=== PATIENT | male | born 1990 | race Hispanic/Latino ===

== ENCOUNTER 2017-11-23 07:12 | Emergency (ER) | payer OTHER ==
[2017-11-23] MEDS ORDERED: NA CHLORIDE 0.9% 1,000 ML ONE ×2 (07:35→09:04)
[2017-11-23 07:57] LABS: Absolute Lymphocytes (CBC) 1.9 K/uL (0.7-4.9); Absolute Monocytes 0.7 K/uL (0.1-1.3); Absolute Neutrophil 6.6 K/uL (1.8-8.0); Basophils % 0.6 % (0-1.3); Eosinophils % 1.2 % (0-4.4); Hematocrit 42.9 % (39.6-49.0); Lymphocytes % 20.7 % (15.3-44.8); MCH 29.4 pg (27.0-35.0); MCV 85.3 fL (80-100); MPV 8.2 fL (7.6-11.3); Monocytes % 7.5 % (3.3-12.3); RBC Red Blood Cell Count 5.02 M/uL (4.33-5.43)
[2017-11-23 08:05] LABS: ALT/SGPT 26 U/L (12-78); AST/SGOT 20 U/L (15-37); Alkaline Phosphatase 100 U/L (45-117); BUN Blood Urea Nitrogen 17 mg/dL (7-18); Bicarbonate 26 mmol/L (21-32); Bilirubin Direct < 0.1 mg/dL (0-0.2); Bilirubin Total 0.3 mg/dL (0.2-1.0); Glucose Level 111 mg/dL (74-106); Lipase 80 U/L (73-393); Potassium 4.2 mmol/L (3.5-5.1); Protein, Total 8.3 g/dL (6.4-8.2); Sodium Level 140 mmol/L (136-145)
[2017-11-23 08:35] LABS: Urine Blood NEGATIVE (NEG); Urine Glucose NEGATIVE (NEG); Urine Protein 1+ (NEG); Urine Specific Gravity 1.025 (1.005-1.030); Urine pH 6.5 (5.0-7.0)
[2017-11-23 08:36] LABS: Urine Bacteria <20 /HPF (NONE SEEN); Urine Culture Reflex Order NOT NEEDED; Urine Mucus 2+ /HPF (NONE SEEN); Urine RBC <5 /HPF (NONE SEEN)
--- NOTE | 2017-11-23 09:55 | RAD REPORT ---
EXAM DESCRIPTION: CT - Abdomen Pelvis W Contrast - 11/23/2017 9:42 am CLINICAL HISTORY: Abdominal pain. Nausea since 5 a.m. COMPARISON: None. TECHNIQUE: Computed axial tomography of the abdomen and pelvis was obtained. 100 cc Isovue-300 is ad ministered intravenously. Oral contrast was given. All CT scans are performed using dose optimization technique as appropriate and may include automated exposure control or mA/KV adjustment according to patient size. FINDINGS: The liver, spleen, pancreas, adrenals and kidneys appear unremarkable. The appendix is normal caliber. There is no evidence of diverticulitis The wall of the descending colon and proximal sigmoid colon is mildly thickened. IMPRESSION: Mild left colitis
--- NOTE | 2017-11-23 10:06 | ER ---
Nurse's Notes [facility] Name: Raffi Natarajan Age: 27 yrs Sex: Male : 1990 Arrival Date: 11/23/2017 Time: 07:16 Bed 5 Private MD: None, None Diagnosis: Left sided colitis;Abdominal and pelvic pain Presentation: 11/23 07:23 Presenting complaint: Patient states: Abdominal cramps and nausea since 0500 today, has hb been working out in the heat and sun. Denies fever/vomiting. Transition of care: patient was not received from another setting of care. Onset of symptoms was November 23, 2017. Risk Assessment: Do you want to hurt yourself or someone else? Patient reports no desire to harm self or others. Initial Sepsis Screen: Does the patient meet any 2 criteria? No. Patient's initial sepsis screen is negative. Does the patient have a suspected source of infection? No. Patient's initial sepsis screen is negative. Care prior to arrival: None. 07:23 Method Of Arrival: Ambulatory hb 07:23 Acuity: SKYLAR 3 hb Historical: - Allergies: 07:26 No Known Allergies; hb - Home Meds: 07:26 None [Active]; hb - PMHx: 07:26 None; hb - PSHx: 07:26 Appendectomy; hb - Immunization history:: Adult Immunizations up to date. - Social history:: Smoking status: Patient uses tobacco products. - Ebola Screening: : No symptoms or risks identified at this time. Screenin:27 Abuse screen: Denies threats or abuse. Denies injuries from another. Nutritional hb screening: No deficits noted. Tuberculosis screening: No symptoms or risk factors identified. Fall Risk None identified. Assessment: 07:46 General: Appears in no apparent distress. Behavior is calm, cooperative. Pain: Pain hb currently is 7 out of 10 on a pain scale. Neuro: Level of Consciousness is awake, alert, obeys commands, Oriented to person, place, time, situation. Cardiovascular: Capillary refill < 3 seconds Patient's skin is warm and dry. Respiratory: Airway is patent Trachea midline Respiratory effort is even, unlabored, Respiratory pattern is regular, symmetrical, Breath sounds are clear bilaterally. GI: Abdomen is non-distended, Bowel sounds present X 4 quads. Reports nausea. : No signs and/or symptoms were reported regarding the genitourinary system. EENT: No signs and/or symptoms were reported regarding the EENT system. Derm: Skin is intact, is healthy with good turgor, Skin is pink, warm \T\ dry. Musculoskeletal: No signs and/or symptoms reported regarding the musculoskeletal system. 08:20 Reassessment: Pt finished drinking oral contrast, CT notified. hb 08:30 Reassessment: Patient appears in no apparent distress at this time. Patient and/or hb family updated on plan of care and expected duration. Pain level reassessed. Patient is alert, oriented x 3, equal unlabored respirations, skin warm/dry/pink. 09:30 Reassessment: Patient appears in no apparent distress at this time. Patient and/or hb family updated on plan of care and expected duration. Pain level reassessed. Patient is alert, oriented x 3, equal unlabored respirations, skin warm/dry/pink. 10:30 Reassessment: Patient appears in no apparent distress at this time. No changes from previously documented assessment. Patient and/or family updated on plan of care and expected duration. Pain level reassessed. Patient is alert, oriented x 3, equal unlabored respirations, skin warm/dry/pink. Vital Signs: 07:22 BP 122 / 89; Pulse 91; Resp 16 S; Temp 98.3; Pulse Ox 100% ; Pain 7/10; hb 08:30 BP 126 / 76; Pulse 88; Resp 15; Pulse Ox 100% on R/A; hb ED Course: 07:16 Patient arrived in ED. mr 07:17 None, None is Private Physician. mr 07:22 Anjelica Stein, RN is Primary Nurse. hb 07:25 Triage completed. hb 07:26 Arm band placed on right wrist. hb 07:27 Patient has correct armband on for positive identification. Bed in low position. Call hb light in reach. Side rails up X 1. 07:28 Israel Guzman MD is Attending Physician. kdr 07:46 Inserted saline lock: 20 gauge in right antecubital area, using aseptic technique. hb Blood collected. 09:40 CT completed. Patient tolerated procedure well. Patient moved to CT via wheelchair. sj Patient moved back from CT. 09:42 CT Abd/Pelvis - W/Contrast In Process Unspecified. EDMS 10:05 Breann Rizo MD is Referral Physician. kdr 10:51 No provider procedures requiring assistance completed. IV discontinued, intact, hb bleeding controlled, No redness/swelling at site. Pressure dressing applied. Administered Medications: 07:47 Drug: NS 0.9% 1000 ml Route: IV; Rate: 1 bolus; Site: right antecubital; hb 09:05 Follow up: Response: No adverse reaction; IV Status: Completed infusion hb 09:05 Drug: NS 0.9% 1000 ml Route: IV; Rate: 125 ml/hr; Site: right antecubital; hb 10:50 Follow up: Response: No adverse reaction; IV Status: Completed infusion hb 10:49 Drug: Flagyl 500 mg Route: PO; hb 10:49 Follow up: Response: Medication administered at discharge. hb 10:49 Drug: Cipro 500 mg Route: PO; hb 10:50 Follow up: Response: Medication administered at discharge. hb 10:49 Drug: Pepcid 20 mg Route: PO; hb 10:50 Follow up: Response: Medication administered at discharge. hb Outcome: 10:05 Discharge ordered by . kdr 10:51 Discharged to home ambulatory. hb 10:51 Condition: stable 10:51 Discharge instructions given to patient, Instructed on discharge instructions, follow up and referral plans. medication usage, Demonstrated understanding of instructions, follow-up care, medications, Prescriptions given X x 5 10:52 Patient left the ED. hb Signatures: Dispatcher [employer] EDMS Israel Guzman MD MD kdr Rivera, Maria mr Jones, Susan sj Baxter, Heather, RN RN hb
--- NOTE | 2017-11-23 10:06 | EDPHYS ---
Physician Documentation [facility] Name: Raffi Natarajan Age: 27 yrs Sex: Male : 1990 Arrival Date: 11/23/2017 Time: 07:16 Bed 5 Private MD: None, None ED Physician Israel Guzman HPI: 11/23 07:59 This 27 yrs old Male presents to ER via Ambulatory with complaints of kdr Dehydration. 07:59 The patient woke up this morning and had nausea and abdominal cramps. He had worked out kdr in the heat yesterday and feels he may be dehydrataed. Onset: The symptoms/episode began/occurred suddenly, just prior to arrival, this morning. Severity of symptoms: At their worst the symptoms were mild just prior to arrival, in the emergency department the symptoms are unchanged. The patient has not experienced similar symptoms in the past. The patient has not recently seen a physician. Historical: - Allergies: 07:26 No Known Allergies; hb - Home Meds: 07:26 None [Active]; hb - PMHx: 07:26 None; hb - PSHx: 07:26 Appendectomy; hb - Immunization history:: Adult Immunizations up to date. - Social history:: Smoking status: Patient uses tobacco products. - Ebola Screening: : No symptoms or risks identified at this time. ROS: 07:59 Constitutional: Negative for fever, chills, and weight loss, Eyes: Negative for injury, kdr pain, redness, and discharge, ENT: Negative for injury, pain, and discharge, Neck: Negative for injury, pain, and swelling, Cardiovascular: Negative for chest pain, palpitations, and edema, Respiratory: Negative for shortness of breath, cough, wheezing, and pleuritic chest pain, Back: Negative for injury and pain, : Negative for injury, bleeding, discharge, and swelling, MS/Extremity: Negative for injury and deformity, Skin: Negative for injury, rash, and discoloration, Neuro: Negative for headache, weakness, numbness, tingling, and seizure activity. Psych: Negative for depression, anxiety, suicide ideation, homicidal ideation, and hallucinations, Allergy/Immunology: Negative for hives, rash, and allergies, Endocrine: Negative for neck swelling, polydipsia, polyuria, polyphagia, and marked weight changes, Hematologic/Lymphatic: Negative for swollen nodes, abnormal bleeding, and unusual bruising. 07:59 Abdomen/GI: Positive for abdominal pain, nausea, abdominal cramps, Negative for vomiting, diarrhea, constipation, abdominal distension, anorexia, dysphagia, hematemesis, black/tarry stool, rectal pain, rectal bleeding, bowel incontinence. Exam: 07:59 Constitutional: This is a well developed, well nourished patient who is awake, alert, kdr and in no acute distress. Head/Face: Normocephalic, atraumatic. Eyes: Pupils equal round and reactive to light, extra-ocular motions intact. Lids and lashes normal. Conjunctiva and sclera are non-icteric and not injected. Cornea within normal limits. Periorbital areas with no swelling, redness, or edema. Neck: Trachea midline, no thyromegaly or masses palpated, and no cervical lymphadenopathy. Supple, full range of motion without nuchal rigidity, or vertebral point tenderness. No Meningismus. Chest/axilla: Normal chest wall appearance and motion. Nontender with no deformity. No lesions are appreciated. Cardiovascular: Regular rate and rhythm with a normal S1 and S2. No gallops, murmurs, or rubs. Normal PMI, no JVD. No pulse deficits. Respiratory: Lungs have equal breath sounds bilaterally, clear to auscultation and percussion. No rales, rhonchi or wheezes noted. No increased work of breathing, no retractions or nasal flaring. Back: No spinal tenderness. No costovertebral tenderness. Full range of motion. Skin: Warm, dry with normal turgor. Normal color with no rashes, no lesions, and no evidence of cellulitis. MS/ Extremity: Pulses equal, no cyanosis. Neurovascular intact. Full, normal range of motion. Neuro: Awake and alert, GCS 15, oriented to person, place, time, and situation. Cranial nerves II-XII grossly intact. Motor strength 5/5 in all extremities. Sensory grossly intact. Cerebellar exam normal. Normal gait. Psych: Awake, alert, with orientation to person, place and time. Behavior, mood, and affect are within normal limits. 07:59 Abdomen/GI: Inspection: abdomen appears normal, obese Bowel sounds: active, diminished, in all quadrants, Palpation: soft, in all quadrants, mild abdominal tenderness, in the left lower quadrant, rebound tenderness, is not appreciated, voluntary guarding, is not appreciated, involuntary guarding, is not appreciated. Vital Signs: 07:22 BP 122 / 89; Pulse 91; Resp 16 S; Temp 98.3; Pulse Ox 100% ; Pain 7/10; hb 08:30 BP 126 / 76; Pulse 88; Resp 15; Pulse Ox 100% on R/A; hb MDM: 07:59 Data reviewed: vital signs, nurses notes, lab test result(s), radiologic studies. kdr Counseling: I had a detailed discussion with the patient and/or guardian regarding: the historical points, exam findings, and any diagnostic results supporting the discharge/admit diagnosis, lab results, radiology results. 10:05 Patient medically screened. kdr 11/23 07:29 Order name: Basic Metabolic Panel; Complete Time: 08:08 kdr 11/23 07:29 Order name: CBC with Diff; Complete Time: 08:08 kdr 11/23 07:29 Order name: Creatinine for Radiology; Complete Time: 08:08 kdr 11/23 07:29 Order name: Hepatic Function; Complete Time: 08:08 kdr 11/23 07:29 Order name: Lipase; Complete Time: 08:08 kdr 11/23 07:29 Order name: Urine Microscopic Only; Complete Time: 10:03 kdr 11/23 07:29 Order name: IV Saline Lock; Complete Time: 07:47 kdr 11/23 08:08 Order name: CT Abd/Pelvis - W/Contrast; Complete Time: 10:03 kdr 11/23 08:19 Order name: Urine Dipstick--Ancillary (enter results); Complete Time: 10:03 ag 11/23 07:29 Order name: Labs collected and sent; Complete Time: 07:48 kdr 11/23 07:29 Order name: Urine Dipstick-Ancillary (obtain specimen); Complete Time: 07:48 kdr Administered Medications: 07:47 Drug: NS 0.9% 1000 ml Route: IV; Rate: 1 bolus; Site: right antecubital; hb 09:05 Follow up: Response: No adverse reaction; IV Status: Completed infusion hb 09:05 Drug: NS 0.9% 1000 ml Route: IV; Rate: 125 ml/hr; Site: right antecubital; hb 10:50 Follow up: Response: No adverse reaction; IV Status: Completed infusion hb 10:49 Drug: Flagyl 500 mg Route: PO; hb 10:49 Follow up: Response: Medication administered at discharge. hb 10:49 Drug: Cipro 500 mg Route: PO; hb 10:50 Follow up: Response: Medication administered at discharge. hb 10:49 Drug: Pepcid 20 mg Route: PO; hb 10:50 Follow up: Response: Medication administered at discharge. hb Disposition: 11/23/17 10:05 Discharged to Home. Impression: Left sided colitis, Abdominal and pelvic pain. - Condition is Stable. - Discharge Instructions: Abdominal Pain, Adult, [id number]. - Prescriptions for Bentyl 20 mg Oral Tablet - take 1 tablet by ORAL route every 6 hours As needed; 20 tablet. Cipro 500 mg Oral Tablet - take 1 tablet by ORAL route every 12 hours for 10 days; 20 tablet. Flagyl 500 mg Oral Tablet - take 1 tablet by ORAL route every 6 hours for 10 days; 40 tablet. Pepcid 20 mg Oral Tablet - take 1 tablet by ORAL route every 12 hours for 5 days; 10 tablet. Zofran 4 mg Oral Tablet - take 1 tablet by ORAL route every 12 hours As needed; 6 tablet. Tramadol 50 mg Oral Tablet - take 1 tablet by ORAL route every 8 hours as needed; 12 tablet. - Medication Reconciliation Form, Thank You Letter, Antibiotic Education, Prescription Opioid Use, Work release form form. - Follow up: Private Physician; When: 2 - 3 days; Reason: If symptoms return, Further diagnostic work-up, Recheck today's complaints, Continuance of care, Re-evaluation by your physician. Follow up: Breann Rizo MD; When: 2 - 3 days; Reason: Wound Recheck, Recheck today's complaints, Continuance of care, Re-evaluation by your physician. - Problem is new. - Symptoms have improved. Signatures: Dispatcher [employer] Israel Rausch MD MD kdr Anjelica Stein RN RN Corrections: (The following items were deleted from the chart) 10:52 10:05 11/23/2017 10:05 Discharged to Home. Impression: Left sided colitis; Abdominal hb and pelvic pain. Condition is Stable. Forms are Medication Reconciliation Form, Thank You Letter, Antibiotic Education, Prescription Opioid Use. Follow up: Private Physician; When: 2 - 3 days; Reason: If symptoms return, Further diagnostic work-up, Recheck today's complaints, Continuance of care, Re-evaluation by your physician. Follow up: Breann Rizo; When: 2 - 3 days; Reason: Wound Recheck, Recheck today's complaints, Continuance of care, Re-evaluation by your physician. Problem is new. Symptoms have improved. kdr
[2017-11-23] MEDS ORDERED: metroNIDAZOLE 500 MG TABLET ONE (10:37)
[2017-11-23] MEDS ORDERED: CIPROFLOXACIN HCL 500 MG TAB ONE (10:38)
[2017-11-23] MEDS ORDERED: FAMOTIDINE 20 MG TAB ONE (10:39)
[2017-11-23 10:56] VITALS: TEMP 98.3; O2SAT 100
[2017-11-23 10:57] VITALS: BP 126/76
== END 2017-11-23 10:52 | disposition home or self-care (01) ==
LOC: ER 07:12
DX: K51.50 Left sided colitis without complications (principal); Z72.0 Tobacco use
CPT/HCPCS: 36415; 74177; 80048; 80076; 81003; 81015; 83690; 85025; 96360; 96361; 99284; J7030; Q9967